=== PATIENT | female | born 1990 | race Caucasian/White ===

== ENCOUNTER 2024-06-09 12:07 | Inpatient (IN) | payer OTHER ==
[~2024-06-09 12:07] MED LIST: CALCIUM CARBONATE 500 MG CHEW PO PRN; DEXTROSE 5% - NACL 0.45% 1,000 ML IV SCH; DEXTROSE 5% 1,000 ML IV PRN; DEXTROSE 50% 50 ML SYR IV PRN; GLUCAGON,HUMAN RECOMBINANT 1 MG/ML VIAL SUB-Q PRN; IBLOOD GLUCOSE TEST STRIP 1 EA TEST VI SCH; IBLOOD GLUCOSE TEST STRIP 1 EA TEST XX PRN; INSULIN REGULAR IN 0.9 % NACL 100 ML IV SCH; Insulin Regular, Human 100 UNIT/ML ML IV PRN; MAGNESIUM HYDROXIDE/AL HYDROX 30 ML CUP PO PRN; SODIUM CHLORIDE 0.45% 1,000 ML IV SCH; VANCOMYCIN HCL 2,000 MG in DEXTROSE 5% 500 ML IV SCH; miSOPROStoL 25 MCG TAB PV SCH
[2024-06-09] MEDS ORDERED: LACTATED RINGER'S 1,000 ML IV SCH ×2 (12:15→21:33)
[2024-06-09] MEDS ORDERED: LACTATED RINGER'S 1,000 ML IV PRN (12:15)
[2024-06-09] MEDS ORDERED: OXYTOCIN/0.9 % SODIUM CHLORIDE 500 ML IV SCH ×3 (13:00→21:30)
[2024-06-09 13:01] LABS: HEMATOCRIT 35.8 % (35.0-50.0); HEMOGLOBIN 11.9 g/dL (12.0-18.0); MCH 29.1 (27-36); MCHC 33.2 g/dl (30-36); MCV 87.7 fl (81-99); RBC 4.08 M/ul (4.3-5.7); RDW 13.6 (10.5-15.0)
[2024-06-09 13:01] LABS: AMPHETAMINES, URINE NEGATIVE (NEGATIVE); BARBITURATES, URINE NEGATIVE (NEGATIVE); BENZODIAZEPINE, URINE NEGATIVE (NEGATIVE); BUPRENORPHINE, URINE NEGATIVE (NEGATIVE); CANNABINOID, URINE NEGATIVE (NEGATIVE); COCAINE, URINE NEGATIVE (NEGATIVE); ECSTASY, URINE NEGATIVE (NEGATIVE); FENTANYL, URINE NEGATIVE (NEGATIVE); METHADONE, URINE NEGATIVE (NEGATIVE); OPIATES, URINE NEGATIVE (NEGATIVE); OXYCODONE, URINE NEGATIVE (NEGATIVE); PHENCYCLIDINE, URINE NEGATIVE (NEGATIVE)
[2024-06-09 13:03] LABS: CREATININE, RANDOM URINE 36.79 mg/dL (NOT ESTABLISHED); PROTEIN/CREATININE RATIO 0.32 mg/mg (0.010-0.107)
[2024-06-09 13:14] LABS: CREATININE, SERUM 0.81 mg/dL (0.55-1.02)
[2024-06-09 13:56] LABS: ABO A; ANTIBODY SCREEN NEGATIVE; RH POSITIVE
[2024-06-09] MEDS ORDERED: LABETALOL HCL 100 MG/20 ML MDV IV PRN ×3 (18:15)
[2024-06-09] MEDS ORDERED: hydrALAZINE HCL 20 MG/ML VIAL IV PRN (18:15)
[2024-06-09] MEDS ORDERED: LACTATED RINGER'S 2,000 ML IV ONE (18:45)
[2024-06-09] MEDS ORDERED: ROPIVACAINE 0.2% 200 ML BAG EPIDURAL SCH (18:45)
[2024-06-09] MEDS ORDERED: ePHEDrine sulfate 5 MG/ML SYRINGE IV PRN (18:45)
[2024-06-09] MEDS ORDERED: LACTATED RINGER'S 500 ML IV PRN (18:45)
[2024-06-09] MEDS ORDERED: ePHEDrine KIT FOR FBC IV ONE (19:33)
[2024-06-09] MEDS ORDERED: LIDOCAINE 2% W/ EPI 1:200,000 20 ML SDV ONE (19:53)
[2024-06-09] MEDS ORDERED: MORPHINE SULFATE 1 MG/ML VIAL ONE (19:55)
[2024-06-09] MEDS ORDERED: ondansetron HCL 4 MG/2 ML VIAL ONE (19:55)
[2024-06-09] MEDS ORDERED: OXYTOCIN 10 UNITS/ML VIAL ONE ×2 (19:56→20:08)
[2024-06-09] MEDS ORDERED: CEFAZOLIN SODIUM 2 GM/20 ML SYR ONE (19:57)
[2024-06-09] MEDS ORDERED: CEFAZOLIN SODIUM 2 GM/20 ML SYR IV ONE (20:00)
[2024-06-09] MEDS ORDERED: fentaNYL citrate 100 MCG/2 ML VIAL ONE ×2 (20:06→20:09)
[2024-06-09] MEDS ORDERED: SODIUM CHLORIDE 0.9% 20 ML IV ONE (20:17)
[2024-06-09] MEDS ORDERED: Ropivacaine HCl 0.5% 30 ML VIAL ONE (20:17)
[2024-06-09] MEDS ORDERED: dexmedeTOMIDine HCl 200 MCG/2 ML VIAL ONE (20:17)
[2024-06-09] MEDS ORDERED: DEXAMETHASONE SOD PHOS 4 MG/ML VIAL ONE (20:17)
[2024-06-09] MEDS ORDERED: TRANEXAMIC ACID 1,000 MG/10 ML AMP ONE (20:25)
[2024-06-09] MEDS ORDERED: NALOXONE HCL 0.4 MG SYR IV PRN ×2 (20:45)
[2024-06-09] MEDS ORDERED: IBLOOD GLUCOSE TEST STRIP 1 EA TEST VI PRN (20:45)
[2024-06-09] MEDS ORDERED: diphenhydrAMINE HCL 50 MG/ML VIAL IV PRN ×2 (20:45)
[2024-06-09] MEDS ORDERED: ondansetron HCL 4 MG/2 ML VIAL IV PRN ×3 (20:45→21:30)
[2024-06-09] MEDS ORDERED: KETOROLAC TROMETHAMINE 30 MG/ML VIAL IV PRN ×2 (20:45)
[2024-06-09] MEDS ORDERED: fentaNYL citrate 50 MCG/ML SDV IV PRN (20:45)
[2024-06-09] MEDS ORDERED: HYDROmorphone HCL 1 MG/ML SYR IV PRN (20:45)
[2024-06-09] MEDS ORDERED: PROMETHAZINE HCL 25 MG SUPP PR PRN (21:30)
[2024-06-09] MEDS ORDERED: bisacodyL 10 MG SUPP PR PRN (21:30)
[2024-06-09] MEDS ORDERED: PROCHLORPERAZINE EDISYLATE 10 MG/2 ML VIAL IV PRN (21:30)
[2024-06-09] MEDS ORDERED: LIDOCAINE 2% VISCOUS 6 ML SYR TOP ONE (21:30)
[2024-06-09] MEDS ORDERED: PROMETHAZINE HCL 25 MG TAB PO PRN (21:30)
[2024-06-09] MEDS ORDERED: HYDROCODONE/ACETA 5/325 TAB PO PRN (21:30)
[2024-06-09] MEDS ORDERED: METOCLOPRAMIDE HCL 10 MG/2 ML SDV IV PRN (21:30)
--- NOTE | 2024-06-09 22:10 | NUR ---
06/09/242209 JensJennifer 2106- PT ARRIVES TO [facility] RM 105 VIA BED. PT IS A&O AND ASKING QUESTIONS APPROPRIATELY. AT BEDSIDE. MICHAEL RN W/BABY AT BEDSIDE. KARLI RN AT BEDSIDE FOR FIRST FUNDAL CHECK W/THIS RN. 18G IV IN LWRIST IS RUNNING 30 UNITS OF PIT IN LR, WNL. IV IN RT HAND SALINE LOCKED, WNL. PT STATES NO PAIN OR NAUSEA AT THIS TIME. ALL CMS INTACT AND PT WIGGLES TOES AND MOVES LEGS TO ASSIST WITH FUNDAL CHECKS WITHOUT DIFFICULTY. 2112- MICHAEL RN AT BEDSIDE TO ASSIST MOTHER WITH , REMAINS AT BEDSIDE. BOLAÑOS DRAINING TO GRAVITY, SCD'S IN PLACE. 2120- PT CONTINUES TO REPORT NO PAIN OR NAUSEA AND ABLE TO ASSIST LEGS FOR FUNDAL CHECKS. PT TOLERATES FUNDAL CHECKS WITHOUT VISIBLE PAIN PER FLACC SCALE. ABDOMINAL SITE SUPPORTED, REMAINS C/D/I. 2122- PT HOB IS ELEVATED SLIGHTLY TO ASSIST WITH . PT TOLERATES SIPS OF ICE WATER WITHOUT DIFFICULTY OR ONSET OF NAUSEA. BLOOD GLUCOSE TAKEN PER WAYNE NICHOLAS REQUEST, BS CHECK IS 189 AT THIS TIME. KARLI RN NOTIFIED AND SHE INSTRUCTS PT THAT THEY WILL BE PLACING INSULIN PUMP BACK IN PLACE. 2134- REPORT GIVEN TO MICHAEL BRANCH AND KARLI RN. SCD'S REMAIN IN PLACE, 30 UNITS PIT CONTINUES INFUSING DIRECTED, BOLAÑOS DRAINING TO GRAVITY. FBC RN'S REMAIN AT PT BEDSIDE. RN'S, PT, AND PT STATE NO FURTHER QUESTIONS OR NEEDS AT THIS TIME.
[2024-06-09] MEDS ORDERED: Insulin Regular, Human 100 UNIT/ML ML SUB-Q ONE ×2 (22:15→22:45)
[2024-06-10] MEDS ORDERED: IBLOOD GLUCOSE TEST STRIP 1 EA TEST VI SCH
[2024-06-10] MEDS ORDERED: DEXTROSE 50% 50 ML SYR IV PRN ×2
[2024-06-10] MEDS ORDERED: INSULIN REGULAR IN 0.9 % NACL 100 ML IV SCH
[2024-06-10] MEDS ORDERED: DEXTROSE 5% - NACL 0.45% 1,000 ML IV SCH
[2024-06-10] MEDS ORDERED: TERBUTALINE SULFATE 1 MG/ML AMP SUB-Q ONE
[2024-06-10] MEDS ORDERED: DEXTROSE 5% 1,000 ML IV PRN
[2024-06-10] MEDS ORDERED: miSOPROStoL 25 MCG TAB PV SCH
[2024-06-10] MEDS ORDERED: IBLOOD GLUCOSE TEST STRIP 1 EA TEST XX PRN
[2024-06-10] MEDS ORDERED: CALCIUM CARBONATE 500 MG CHEW PO PRN
[2024-06-10] MEDS ORDERED: LACTATED RINGER'S 1,000 ML IV SCH
[2024-06-10] MEDS ORDERED: MAGNESIUM HYDROXIDE/AL HYDROX 30 ML CUP PO PRN
[2024-06-10] MEDS ORDERED: SODIUM CHLORIDE 0.45% 1,000 ML IV SCH
[2024-06-10] MEDS ORDERED: Insulin Regular, Human 100 UNIT/ML ML IV PRN
[2024-06-10] MEDS ORDERED: GLUCAGON,HUMAN RECOMBINANT 1 MG/ML VIAL SUB-Q PRN
[2024-06-10] MEDS ORDERED: VANCOMYCIN HCL 2,000 MG in DEXTROSE 5% 500 ML IV SCH
[2024-06-10] MEDS ORDERED: Insulin Regular, Human 100 UNIT/ML ML SUB-Q ONE ×2 (00:15→02:00)
[2024-06-10] MEDS ORDERED: KETOROLAC TROMETHAMINE 30 MG/ML VIAL IV SCH (02:00)
[2024-06-10 05:40] LABS: HEMATOCRIT 27.4 % (35.0-50.0); HEMOGLOBIN 9.2 g/dL (12.0-18.0); MCH 29.2 (27-36); MCHC 33.6 g/dl (30-36); MCV 86.9 fl (81-99); PLATELET COUNT 270 K/uL (140-440); RBC 3.15 M/ul (4.3-5.7); RDW 13.5 (10.5-15.0)
[2024-06-10 05:54] LABS: BANDS, MANUAL DIFF 1; LYMPHOCYTES, MANUAL DIFF 11; MONOCYTES, MANUAL DIFF 2; NEUTROPHILS, MANUAL DIFF 86
[2024-06-10 05:58] LABS: ALBUMIN 2.2 g/dL (3.4-5.0); ALBUMIN/GLOBULIN RATIO 0.67 (1.1-2.4); ANION GAP 13.3 (7-21); BILIRUBIN, TOTAL 0.5 ng/dL (0.2-1.0); BUN/CREATININE RATIO 17.97 (6.0-28.6); CREATININE, SERUM 0.89 mg/dL (0.55-1.02); POTASSIUM 4.3 mmol/L (3.5-5.1); PROTEIN, TOTAL 5.5 g/dL (6.4-8.2)
--- NOTE | 2024-06-10 08:55 | PR ---
[facility] [address] [facility] [place], [place] [address] Signed PP Progress Notes Datetime Report Generated by CPN: 06/10/2024 08:55 SUBJECTIVE: [id number] Pain: Within Normal Limits Nausea/Vomiting: Denies Flatus: Yes Vital Signs: [id number] Cardiovascular: Normal Respiratory: Normal Abdomen/Uterus: Normal Lochia: Normal Vulva/Perineum: Not Done Breasts: Normal CVA Tenderness: Not Done Extremities: Normal Incision: Normal Progress: Normal IMPRESSION/PLAN/PROCEDURES: [id number] Impression: Normal Progression; Induced Hypertension Plan: Continue Present Management Progress Notes: Recovering well from C/S. Pain and bleeding well controlled. Not yet ambulating. Signing Physician: Lisa Taylor MD Copies: ~ *Electronically Signed* 06/10/24 0855 LISA TAYLOR MD PATIENT NAME: DONALD NÚÑEZ PROGRESS NOTE DATE OF : 86 PHYSICIAN: LISA TAYLOR MD RPT #: [id number] REPORT IS CONFIDENTIAL AND NOT TO BE RELEASED WITHOUT AUTHORIZATION
[2024-06-11] MEDS ORDERED: IBUPROFEN 600 MG TAB PO SCH (02:00)
--- NOTE | 2024-06-11 18:15 | PR ---
[facility] [address] [facility] [address] [place], [place] [address] Signed PP Progress Notes Datetime Report Generated by CPN: 06/11/2024 18:15 SUBJECTIVE: [id number] Pain: Within Normal Limits Nausea/Vomiting: Denies Flatus: Yes Bowel Movement: No Vital Signs: [id number] Vital Signs: Reviewed Notable Details: Sustained mildly elevated BPs Cardiovascular: Normal Respiratory: Normal Abdomen/Uterus: Normal Lochia: Normal Vulva/Perineum: Not Done Breasts: Not Done CVA Tenderness: Normal Extremities: Normal Incision: Normal Progress: Normal Exam Comments: Fundus firm U-2 nontender IMPRESSION/PLAN/PROCEDURES: [id number] Impression: Normal Progression; Induced Hypertension Plan: Continue Present Management Progress Notes: Pt seen and examined. Doing well. Ambulating, voiding, and tolerating full diet. Pain and lochia minimal. . No fever/chill. No BISHOP, RUQ, or visual changes. Sustained mildly elevated BPs. Will start procardia XL 30mg PO daily. Updated insulin pump w/ new values w/ help of endocrinology w/ good control. No other questions or concerns. Signing Physician: Brittny Thompson DO Copies: ~ *Electronically Signed* 06/11/24 3396 BRITTNY THOMPSON (MURIEL) DO PATIENT NAME: DONALD NÚÑEZ PROGRESS NOTE DATE OF : 88 PHYSICIAN: BRITTNY THOMPSON (JD) DO RPT #: [id number] REPORT IS CONFIDENTIAL AND NOT TO BE RELEASED WITHOUT AUTHORIZATION
[2024-06-11 18:37] VITALS: BP 141/72
[2024-06-11] MEDS ORDERED: SENNOSIDES/DOCUSATE 1 EA TAB PO SCH (21:00)
--- NOTE | 2024-06-12 12:45 | PR ---
[facility] [address] [place], [place] [address] Signed PP Progress Notes Datetime Report Generated by CPN: 06/12/2024 12:44 SUBJECTIVE: [id number] Pain: Within Normal Limits Nausea/Vomiting: Denies Flatus: Yes Bowel Movement: Yes Vital Signs: [id number] Vital Signs: Reviewed Notable Details: Sustained mildly elevated BPs Cardiovascular: Normal Respiratory: Normal Abdomen/Uterus: Normal Lochia: Normal Vulva/Perineum: Not Done Breasts: Not Done CVA Tenderness: Normal Extremities: Normal Incision: Normal Progress: Normal Exam Comments: Fundus firm U-2 nontender Incision clean dry. Infraincisional bruising IMPRESSION/PLAN/PROCEDURES: [id number] Impression: Normal Progression Other Impression: PreE without severe features Plan: Discharge Progress Notes: Pt seen and examined. Doign well. Ambulating, voiding, and tolerating full diet. Pain and lochia minimal. well. No fevers/chills. Reports well controlled glucose levels. No BISHOP, RUQ pain or visual changes. Again elevated BPs noted despite starting Procardial XL 30mg po last night. Will increase to 60mg po daily. Reviewed d/c instructions, medications, and BP check in 2 days. Reviewed s/sx PreE w/ severe features. Planning vasectomy for pp contraception. Signing Physician: Brittny Thompson DO Copies: ~ *Electronically Signed* 06/12/24 2968 BRITTNY THOMPSON (MURIEL) DO PATIENT NAME: DONALD NÚÑEZ PROGRESS NOTE DATE OF : 86 PHYSICIAN: BRITTNY THOMPSON (JD) DO RPT #: [id number] REPORT IS CONFIDENTIAL AND NOT TO BE RELEASED WITHOUT AUTHORIZATION
--- NOTE | 2024-06-12 14:40 | PATH ---
[facility] [address] [place], [place] [address] Signed SPECIMEN(S): A PLACENTA SPECIMEN SOURCE: A. PLACENTA CLINICAL HISTORY: Gestational Age: 37 weeks, Infants weight: 7 pounds 11 ounces, Score 1 Minute: Eight, Score 5 Minute: Nine, Score 10 Minute: Not provided, ABO/Rh(D): Not provided, Rhogam: Not provided, Antibody Screen: Not provided, Specific issues of concern: Possible abruption, distress, Indications for submitting to pathology: Possible abruption, distress. 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 These findings, together with the gross examination, support the pathologic diagnosis. GROSS DESCRIPTION: The specimen, labeled and designated "Jimbo R, placenta," is received in formalin and consists of bolanos discoid placenta with the following parameters: Umbilical cord: Insertion eccentric, measurement 14.5 x 1.5 cm; trivascular. Cord coiling index (per 10 cm): Cannot be grossly assessed. Lesions: Not grossly identified. Membranes: Insertion site: Marginal, pink-carrero and translucent. Intact. Other: Not grossly identified. Chorionic Plate: Normal radiating vascular pattern, blue-purple and shiny. Lesions: Not grossly identified. Other: Not grossly identified. Maternal Surface: Normal cotyledons, intact. Lesions: Not grossly identified. Measurement: 19.1 x 19.0 x 2.7 cm. 538 g Cut Surface: Maroon and spongy. Lesions: Four carrero-yellow firm rubbery areas of consolidation that measure up to 2.5 x 2.2 x 0.9 cm. Collectively these areas of consolidation involve less than 10% of the placenta parenchyma. Basal plate fibrin 0.1 cm in thickness. PATIENT NAME: DONALD NÚÑEZ PATHOLOGY DATE OF : 86 REPORT #: [id number] PHYSICIAN: CAROLIN WOODSON PCP: COCO SIGALA PA-C REPORT IS CONFIDENTIAL AND NOT TO BE RELEASED WITHOUT AUTHORIZATION [facility] [address] [place], [place] [address] Signed Other Findings: No firmly adherent blood clot is grossly identified. No compression of the placental disc is grossly identified. Cassette Summary: (A1) membranes and umbilical cord (A2) areas of consolidation (A3) placenta parenchyma (A4) placenta parenchyma FB (under the direct supervision of a pathologist) The Gross Description was prepared using a voice recognition system. The report was reviewed for accuracy; however, sound-alike word errors, addition and/or deletions may occur. If there is any question about this report, please contact Client Services. ADDITIONAL NOTES: Immunohistochemical and/or in situ hybridization studies if performed in this case included appropriate positive controls that reacted as expected. This test was developed and its performance characteristics determined by [facility]. It has not been cleared or approved by the U.S. Food and Drug Administration. The FDA has determined that such clearance or approval is not necessary. This test is used for clinical purposes. It should not be regarded as investigational or for research. [facility] is certified under the Clinical Laboratory Improvement Amendments of 1988 (CLIA) as qualified to perform high complexity clinical laboratory testing. PERFORMING LABORATORY: Technical component was performed by [facility], [address] [place] [id number] (CLIA# [id number]). Professional interpretation was performed by [facility], [address] [place] [address] (CLIA#: [id number]). Diagnostician: Lang Molina MD Pathologist Electronically Signed 06/12/2024 Copies: ~ PATIENT NAME: DONALD NÚÑEZ PATHOLOGY DATE OF : 86 REPORT #: [id number] PHYSICIAN: CAROLIN PATHOLOGY PCP: COCO SIGALA PA-C REPORT IS CONFIDENTIAL AND NOT TO BE RELEASED WITHOUT AUTHORIZATION
== END 2024-06-12 14:05 | disposition home or self-care (01) | DRG 787 ==
LOC: FBC 12:07
PROVIDERS: ADMIT Obstetrics & Gynecology; ATTEND Obstetrics & Gynecology
PROC: 10D00Z1 Extraction of Products of Conception, Low, Open Approach (ICD-10-PCS; principal; 2024-06-09 20:00)
DX: O11.4 Pre-existing hypertension with pre-eclampsia, complicating childbirth (principal); D62 Acute posthemorrhagic anemia; O24.02 Pre-existing type 1 diabetes mellitus, in childbirth; O45.93 Premature separation of placenta, unspecified, third trimester; O90.81 Anemia of the puerperium; O76 Abnormality in fetal heart rate and rhythm complicating labor and delivery; O10.92 Unspecified pre-existing hypertension complicating childbirth; Z37.0 Single live birth; Z3A.37 37 weeks gestation of pregnancy; Z88.0 Allergy status to penicillin; Z96.41 Presence of insulin pump (external) (internal); Z79.4 Long term (current) use of insulin
CPT/HCPCS: 01961; 36415; 64488; 76942; 80053; 80307; 82565; 82570; 82803; 84156; 84450; 84520; 84550; 85025; 85027; 86850; 86900; 86901; 94799; A9270; J0690; J1100; J1815; J1885; J2274; J2405; J2590; J2795; J3010; J3105; J3370; J7042; J7060; J7121

== ENCOUNTER 2024-07-23 14:28 | Emergency (ER) | payer OTHER ==
[~2024-07-23] VITALS: Ht 172.7 cm; Wt 98.0 kg
[2024-07-23] MEDS ORDERED: NOVOLOG100 UNIT/2 (14:41)
[2024-07-23] MEDS ORDERED: PRENATAL VITAM1 EAC5 (14:41)
[2024-07-23] MEDS ORDERED: NIFEDIPINE ER90 M1 (14:41)
[2024-07-23] MEDS ORDERED: SERTRALINE HCL25 MG (14:41)
[2024-07-23] MEDS ORDERED: LABETALOL HCL200 MG (14:41)
[2024-07-23] MEDS ORDERED: LABETALOL HCL100 MG (14:42)
[2024-07-23] MEDS ORDERED: ondansetron HCL 4 MG/2 ML VIAL IV ONE (15:15)
[2024-07-23] MEDS ORDERED: diphenhydrAMINE HCL 50 MG/ML VIAL IV ONE (15:15)
[2024-07-23] MEDS ORDERED: methylPREDNISolone SOD SUCC 125 MG/2 ML VIAL IV ONE (15:15)
[2024-07-23] MEDS ORDERED: FAMOTIDINE 20 MG/ 2 ML VIAL IV ONE (15:15)
[2024-07-23] MEDS ORDERED: PEPCID20 MG PO (16:56)
[2024-07-23] MEDS ORDERED: PREDNISONE20 MG PO (16:56)
[2024-07-23] MEDS ORDERED: BENADRYL25 MG PO (16:56)
[2024-07-23 17:33] VITALS: BP 128/73
== END 2024-07-23 17:40 | disposition home or self-care (01) ==
LOC: ED 14:28
DX: R42 Dizziness and giddiness (principal); R11.2 Nausea with vomiting, unspecified; T38.5X5A Adverse effect of other estrogens and progestogens, initial encounter; E10.9 Type 1 diabetes mellitus without complications; I10 Essential (primary) hypertension; Z88.0 Allergy status to penicillin; Z91.02 Food additives allergy status; Z79.4 Long term (current) use of insulin; Z79.899 Other long term (current) drug therapy
CPT/HCPCS: 96374; 96375; 99284-25; J1200; J2405; J2919